=== PATIENT | male | born 1990 | race Two or more races ===

== ENCOUNTER 2018-04-16 18:06 | Emergency (ER) | payer MEDICAID ==
[~2018-04-16] VITALS: Ht 182.9 cm; Wt 73.0 kg
[2018-04-16 19:19] VITALS: BP 116/80
== END 2018-04-16 19:45 | disposition left against medical advice (07) ==
LOC: ER 18:06
DX: S61.452A Open bite of left hand, initial encounter (principal); W54.0XXA Bitten by dog, initial encounter; Y93.89 Activity, other specified; Y92.89 Other specified places as the place of occurrence of the external cause; Y99.8 Other external cause status; Z53.21 Procedure and treatment not carried out due to patient leaving prior to being seen by health care provider

== ENCOUNTER 2018-06-30 17:22 | Emergency (ER) | payer MEDICAID ==
[~2018-06-30] VITALS: Ht 182.9 cm; Wt 74.0 kg
[2018-06-30] MEDS ORDERED: KETOROLAC 30MG/ML VIAL IV STA (23:14)
[2018-06-30] MEDS ORDERED: SODIUM CHLORIDE 0.9% 1,000 ML IV ONE (23:14)
[2018-07-01 00:10] LABS: HEMOGLOBIN. 14.1 g/dL (14.0-18.0); MEAN CORPUSCULAR HEMOGLOBIN 29.2 pg (28.0-32.0); MEAN CORPUSCULAR VOLUME 89.4 fL (80.0-94.0); MEAN PLATELET VOLUME 9.5 fl (7.4-10.4); PLATELET 131 x1000/uL (130-400); RED BLOOD CELL COUNT 4.81 mill/uL (4.7-6.1); RED CELL DISTRIBUTION WIDTH 13.5 % (11.6-14.6)
[2018-07-01 00:19] LABS: CHLORIDE 100 mEq/L (98-107)
[2018-07-01 01:22] VITALS: BP 104/66
[2018-07-01 01:24] LABS: PLATELET ESTIMATE NORMAL
== END 2018-07-01 01:24 | disposition home or self-care (01) ==
LOC: ER 18:06
DX: K52.9 Noninfective gastroenteritis and colitis, unspecified (principal)
CPT/HCPCS: 36415; 80053; 83690; 85025; 96361; 96374; 99284; J1885; J7030